=== PATIENT | male | born 1985 | race Two or more races ===

== ENCOUNTER 2017-11-27 10:32 | Emergency (ER) | payer BC ==
[2017-11-27 10:48] VITALS: BP 124/96
[2017-11-27] MEDS ORDERED: HYDROCODONE/APAP 5/325 TAB PO ONE (11:16)
--- NOTE | 2017-11-27 11:30 | EDPHY ---
H & P Stated Complaint: SEVERE BACK PAIN LEFT LOWER RADIATING DOWN LEG Time Seen by Provider: 11/27/17 11:05 HPI/ROS: Chief Complaint: Back pain HPI: 32-year-old male is presenting with worsening left lower back pain radiating down the back of his leg. He initially injured himself about 6 weeks ago. He was seen here in the followed up with a spine surgeon who is been providing him with physical therapy. He also had a Medrol Dosepak. Patient was improved until yesterday when he felt a streaking in his back when he bent over to pull on his pants. Pain got worse. He presented here yesterday was started on Flexeril and a Medrol Dosepak. He is also continuing to a apply ice , take ibuprofen and is using a Lidoderm patch. He says he has been able unable to sleep at all last night. He did call a spine surgeon today but they are unavailable to see him. He is presenting here requesting pain relief. Pain is about an 8/10. It radiates down the back of his leg. He is not having any numbness or weakness. No difficulty ambulating. No urinary trouble. No fevers or chills. ROS: 10 point Review of Systems is negative except as noted in the HPI. PMH: Sciatic back pain Social History: No smoking, no alcohol, no recreational drug use Family History: non-contributory Physical Exam: Gen: Awake, Alert, No Distress HEENT: Nose: no rhinorrhea Eyes: PERRLA, EOMI Mouth: Moist mucosa Neck: Supple, no JVD Chest: nontender, lungs clear to auscultation Heart: S1, S2 normal, no murmur Abd: Soft, non-tender, no guarding Back: Mild left paraspinal tenderness. No spasm noted. Ext: no edema, non-tender Skin: no rash Neuro: CN II-XII intact, Sensation grossly intact, Strength 5/5 in bilateral upper and lower extremities, 2+ deep tendon reflexes, normal dorsal and plantar flexion. - Personal History Current Tetanus Diphtheria and Acellular Pertussis (TDAP): Yes Tetanus Vaccine Date: 2012 - Medical/Surgical History Hx Asthma: No Hx Chronic Respiratory Disease: No Hx Diabetes: No Hx Cardiac Disease: No Hx Renal Disease: No Hx Cirrhosis: No Hx Alcoholism: No Hx HIV/AIDS: No Hx Splenectomy or Spleen Trauma: No Other PMH: Med hx-none. Surg-bilat knees-acl - Social History Smoking Status: Never smoked Constitutional: Initial Vital Signs Temperature (C) 36.5 C 11/27/17 10:44 Heart Rate 85 11/27/17 10:44 Respiratory Rate 18 11/27/17 10:44 Blood Pressure 124/96 H 11/27/17 10:44 O2 Sat (%) 96 11/27/17 10:44 O2 Delivery Mode Room Air Allergies/Adverse Reactions: No Known Allergies Allergy (Verified 11/27/17 10:41) Home Medications: Medication Instructions Recorded methylPREDNISolone [Medrol Dose 1 each PO AD #1 ea 10/19/17 [place]] Cyclobenzaprine [Flexeril 10 MG 10 mg PO TID PRN #15 tab 11/26/17 (*)] Lidocaine [Lidoderm] 1 each TP DAILY 10 Days #10 11/26/17 adh..patch methylPREDNISolone [Medrol Dose 1 each PO AD #1 ea 11/26/17 [place]] Hydrocodone/Acetaminophen 1 - 2 each PO Q4-6PRN PRN #10 11/27/17 [Hydrocodon-Acetaminophen 5-325] tablet Departure - Departure Disposition: Home, Routine, Self-Care Clinical Impression: Sciatica Condition: Good Instructions: Sciatica (ED) Additional Instructions: Take ibuprofen, 600 mg, 3 times a day. Hydrocodone with acetaminophen, 2 tablets every 4-6 hours. Do not exceed 6 tablets a day. You may replace a Lidoderm patch every 24 hr, these are available over-the- counter. Apply ice for 15 minutes of every hour while awake. Make sure to remain active. Did do not lay in bed or sit in a chair for long periods. Avoid heavy lifting or bending at work until cleared by your physician. Please see the attached back exercise instructions. Follow up with your spine physician in 2-3 days for further evaluation. Referrals: Lori Tobin DO [Primary Care Provider] - As per Instructions Prescriptions: Hydrocodone/Acetaminophen [Hydrocodon-Acetaminophen 5-325] 1 - 2 each PO Q4- 6PRN PRN #10 tablet PRN Reason: Pain, Severe
== END 2017-11-27 11:40 | disposition home or self-care (01) ==
LOC: CED 10:32
DX: M54.40 Lumbago with sciatica, unspecified side (principal)